=== PATIENT | male | born 1985 | race Caucasian/White ===

== ENCOUNTER 2018-02-07 23:00 | Emergency (ER) | payer MEDICAID ==
[~2018-02-07] VITALS: Ht 167.6 cm; Wt 52.2 kg
[~2018-02-07 23:00] MED LIST: ADVIL200 M1 PO; DICYCLOMINE HCL10 MG PO; FLONASE ALLERG9.9 ML NS; GABAPENTIN300 MG PO; NAPROSYN500 MG PO; NEURONTIN400 MG PO; OMEPRAZOLE20 MG PO; REMERON45 MG PO; VALIUM5 MG PO; VISTARIL25 MG PO; ZOFRAN ODT8 MG PO
--- NOTE | 2018-02-08 12:42 | EKG ---
[facility] [address] [facility] [facility] [place], [place] [address] Signed Sinus tachycardia Otherwise normal ECG No previous ECGs available Confirmed by LORNA RUBIN MD ([id number] on 02/08/2018 12:42:39 PM Electronically Signed By: LORNA RUBIN MD 02/08/18 1242 PATIENT NAME: VAMSI ENRIQUEZ Salo Electrocardiogram DATE OF : 85 PHYSICIAN: LORNA RUBIN MD REPORT #: [id number] REPORT IS CONFIDENTIAL AND NOT TO BE RELEASED WITHOUT AUTHORIZATION
== END 2018-02-08 02:15 | disposition home or self-care (01) ==
LOC: ED 23:00
DX: T43.022A Poisoning by tetracyclic antidepressants, intentional self-harm, initial encounter (principal); T44.3X2A Poisoning by other parasympatholytics [anticholinergics and antimuscarinics] and spasmolytics, intentional self-harm, initial encounter; T43.592A Poisoning by other antipsychotics and neuroleptics, intentional self-harm, initial encounter; F17.200 Nicotine dependence, unspecified, uncomplicated; Z88.8 Allergy status to other drugs, medicaments and biological substances; Z79.899 Other long term (current) drug therapy
CPT/HCPCS: 80053; 80176; 81001; 83874; 84443; 85025; 93005; 93010; 99283; G0480